=== PATIENT | female | born 1975 | race Caucasian/White ===

== ENCOUNTER 2018-08-06 13:36 | Emergency (ER) | payer MEDICAID ==
[~2018-08-06] VITALS: Ht 154.9 cm; Wt 91.2 kg
--- NOTE | 2018-08-06 13:47 | NUR ---
BIBRA C/O GLF R KNEE PAIN AND ABRASION, -KO. PATIENT A/OX4, BREATHING EVEN AND UNLABORED, NO SOB NOTED, C/O SOME BODY PAIN. PATIENT KEPT IN BED COMFORTABLE. WAITING FOR MD RODRIGUEZ.
[2018-08-06] MEDS ORDERED: IBUPROFEN 600 MG TABLET PO ONE ×2 (14:21→14:30)
[2018-08-06] MEDS ORDERED: HYDROCODONE/APAP 5/325MG 1 EACH TABLET ONE (14:22)
[2018-08-06] MEDS ORDERED: TDAP [DIPH/PERTUSSIS/TET] 0.5 ML VIAL IM ONE ×2 (14:22→14:30)
[2018-08-06] MEDS ORDERED: HYDROCODONE/APAP 5/325MG 1 EACH TABLET PO ONE (14:30)
[2018-08-06 15:40] VITALS: BP 134/82
== END 2018-08-06 15:41 | disposition home or self-care (01) ==
LOC: ER 13:39
DX: S83.8X1A Sprain of other specified parts of right knee, initial encounter (principal); Z88.0 Allergy status to penicillin; W18.39XA Other fall on same level, initial encounter; Y93.01 Activity, walking, marching and hiking; Y92.89 Other specified places as the place of occurrence of the external cause; Y99.8 Other external cause status
CPT/HCPCS: 73564-TC; 90715